=== PATIENT | female | born 1995 ===

== ENCOUNTER 2020-10-29 10:54 | Inpatient (IN) | payer MEDICAID ==
[2020-10-29] MEDS ORDERED: LACTATED RINGERS 1,000 ML ONE (11:18)
[2020-10-29] MEDS ORDERED: ONDANSETRON 4 MG/2 ML INJ IV PRN ×2 (11:59→20:06)
[2020-10-29] MEDS ORDERED: TERBUTALINE 1 MG/1 ML INJ SUB-Q PRN (11:59)
[2020-10-29] MEDS ORDERED: MINERAL OIL 30 ML ORAL LIQD PO PRN (11:59)
[2020-10-29] MEDS ORDERED: ePHEDrine SULFATE 50 MG/1 ML INJ IV PRN (11:59)
[2020-10-29] MEDS ORDERED: LIDOCAINE (2%) 20 MG/1 ML VIAL 20 ML MDV INFILTRATI ONE ×2 (11:59→19:19)
[2020-10-29] MEDS ORDERED: LACTATED RINGERS 1,000 ML IV SCH (12:00)
[2020-10-29] MEDS ORDERED: OXYTOCIN DRIP 30 UNITS/500 ML BAG IV SCH ×2 (12:00)
--- NOTE | 2020-10-29 12:13 | History and Physical Report ---
History of Present Illness Date of examination: 10/29/20 Date of admission: 10/29/2020 Chief complaint: leakage of fluid History of present illness: 24y/o @ 37+4 weeks presents with the complaint of leakage of fluid. She initiated care at 13 weeks ega. course has been uncomplicated. Patient is GBS negative. Past History Past Medical History: no pertinent history Past Surgical History: no surgical history Social history: single - Obstetrical History Expected Date of Delivery: 11/15/20 Actual Gestation: 37 Week(s) 4 Day(s) : 4 Para: 2 Hx # Term Pregnancies: 2 Number of Pregnancies: 0 Spontaneous Abortions: 1 Induced : 0 Number of Living Children: 2 Medications and Allergies Allergies Allergy/AdvReac Type Severity Reaction Status Date / Time No Known Allergies Allergy Unverified 10/29/20 11:56 Home Medications Medication Instructions Recorded Confirmed Last Taken Type One Daily Tablet 325 mg PO DAILY 10/29/20 10/29/20 10/29/20 History Active Meds: Active Medications Butorphanol Tartrate (Butorphanol 2 Mg/1 Ml Inj) 2 mg IV Q2H PRN PRN Reason: Pain , Severe (7-10) Ephedrine Sulfate (Ephedrine Sulfate 50 Mg/1 Ml Inj) 10 mg IV Q2M PRN PRN Reason: Hypotension Fentanyl (Fentanyl 100 Mcg/2 Ml Inj) 100 mcg IV Q2H PRN PRN Reason: Pain,Severe (7-10) LABOR PAIN Oxytocin/Sodium Chloride (Pitocin/Ns 30 Unit/500ml) 30 units in 500 mls @ 2 mls/hr IV TITR MAURILIO; Protocol Lactated Ringer's (Lactated Ringers) 1,000 mls @ 125 mls/hr IV DIRECT MAURILIO Oxytocin/Sodium Chloride (Pitocin/Ns 30 Unit/500ml) 30 units in 500 mls @ 40 mls/hr IV TITR MAURILIO; Protocol Ampicillin Sodium (Ampicillin/Ns 2 Gm/100 Ml) 2 gm in 100 mls @ 100 mls/hr IV ONCE ONE; Protocol Stop: 10/29/20 13:59 Ampicillin Sodium (Ampicillin/Ns 1 Gm/50 Ml) 1 gm in 50 mls @ 100 mls/hr IV Q4H MAURILIO; Protocol Lidocaine (Lidocaine (2%) 20 Mg/1 Ml Vial 20 Ml Mdv) 20 ml INFILTRATI ONCE ONE Stop: 10/29/20 12:00 Mineral Oil (Mineral Oil 30 Ml Oral Liqd) 30 ml PO QHS PRN PRN Reason: Constipation Ondansetron HCl (Ondansetron 4 Mg/2 Ml Inj) 4 mg IV Q8H PRN PRN Reason: Nausea And Vomiting Terbutaline Sulfate (Terbutaline 1 Mg/1 Ml Inj) 0.25 mg SUB-Q ONCE PRN PRN Reason: Hyperstimulation/Hypertonicity Review of Systems All systems: negative Genitourinary: leakage of fluid - Vital Signs Vital signs: Vital Signs Temp Pulse Resp BP Pulse Ox 98.0 F 104 H 16 112/76 84 10/29/20 11:23 10/29/20 11:23 10/29/20 11:23 10/29/20 11:23 10/29/20 11:23 Temp Pulse Resp BP Pulse Ox 98.0 F 106 H 16 112/76 100 10/29/20 11:23 10/29/20 12:06 10/29/20 11:23 10/29/20 11:23 10/29/20 12:06 - Physical Exam Breasts: Positive: deferred Cardiovascular: Regular rate Lungs: Positive: Clear to auscultation - Obstetrical Cervical Dilatation: 1 Results All other labs normal. Assessment and Plan - Patient Problems (1) Spontaneous rupture of amniotic membranes Current Visit: Yes Status: Acute Plan to address problem: admit and initiate pitocin augmentation
[2020-10-29 12:14] LABS: Hematocrit 36.4 % (30.3-42.9); Hemoglobin 12.2 gm/dl (10.1-14.3); Mean Corpuscular HGB Conc 33 % (30-34); Mean Corpuscular Volume 82 fl (79-97); Platelet Count 182 K/mm3 (140-440); Red Blood Count 4.43 M/mm3 (3.65-5.03); Red Cell Distribution Width 15.3 % (13.2-15.2)
[2020-10-29] MEDS ORDERED: BUTORPHANOL 2 MG/1 ML INJ IV PRN (12:30)
[2020-10-29] MEDS ORDERED: fentaNYL 100 MCG/2 ML INJ IV PRN (12:30)
[2020-10-29] MEDS ORDERED: AMPICILLIN/NS 2 GM/100 ML 2 GM/100 ML BAG IV ONE (13:00)
[2020-10-29] MEDS ORDERED: AMPICILLIN/NS 1 GM/50 ML 1 GM/50 ML BAG IV SCH (16:01)
--- NOTE | 2020-10-29 20:05 | Procedure Note ---
OB Delivery Note - Delivery Date of Delivery: 10/29/20 Surgeon: JOSE GOMEZ Estimated blood loss: other (75ml) - Vaginal Delivery presentation: vertex Delivery position: OA Delivery augmentation: pitocin Delivery monitor: external FHT, external uterine Route of delivery: Delivery placenta: spontaneous Delivery cord: nuchal cord (x2), 3 umbilical vessels Episiotomy: none Delivery laceration: none Anesthesia: none - Infant A at 1 minute: 6 at 5 minutes: 8 Infant Gender: Female (weight 6lbs 12oz)
[2020-10-29] MEDS ORDERED: PROMETHAZINE 25 MG TAB PO PRN (20:06)
[2020-10-29] MEDS ORDERED: ACETAMINOPHEN 325 MG TAB PO PRN (20:06)
[2020-10-29] MEDS ORDERED: LANOLIN/ZINC/DIMETHICONE (LANSINOH) 7 GM TP PRN (20:06)
[2020-10-29] MEDS ORDERED: WITCH HAZEL/ GLYCERIN PAD TP PRN (20:06)
[2020-10-29] MEDS ORDERED: PROMETHAZINE 25 MG RECT SUPP PR PRN (20:06)
[2020-10-29] MEDS ORDERED: diphenhydrAMINE 25 MG CAP PO PRN (20:06)
[2020-10-29] MEDS ORDERED: HYDROcodone/ACETAMINOPHEN 5-325 MG TAB PO PRN (20:06)
[2020-10-29] MEDS ORDERED: MAGNESIUM HYDROXIDE (MOM) ORAL LIQD UDC PO PRN (21:06)
[2020-10-29] MEDS: IBUPROFEN 600 MG TAB PO SCH (23:35)
[2020-10-30] MEDS: IBUPROFEN 600 MG TAB PO SCH ×5 (05:03→23:30)
--- NOTE | 2020-10-30 07:44 | Progress Note ---
Assessment and Plan A: PPD#1 s/p at term P: Routine care Anticipate discharge tomorrow Subjective - Subjective Date of service: 10/30/20 Principal diagnosis: s/p at term Interval history: No overnight events. Feeling well this morning. Patient reports: appetite normal, voiding normally, pain well controlled, ambulating normally : doing well Objective - Vital Signs Latest vital signs: Vital Signs Temp Pulse Resp BP BP Pulse Ox 10/30/20 04:40 98.1 F 61 20 95/55 96 10/30/20 00:44 97.8 F 67 20 95/62 98 10/29/20 21:20 99.2 F 68 18 89/52 97 10/29/20 21:01 69 99 10/29/20 20:56 67 99 10/29/20 20:51 71 99 10/29/20 20:46 74 99 10/29/20 20:41 69 99 10/29/20 20:39 70 101/58 10/29/20 20:36 69 99 10/29/20 20:31 69 99 10/29/20 20:26 70 99 10/29/20 20:21 74 99 10/29/20 20:16 77 99 10/29/20 20:11 74 99 10/29/20 20:08 98.5 F 10/29/20 20:06 71 99 10/29/20 20:01 75 98 10/29/20 19:56 71 99 10/29/20 19:51 71 100 10/29/20 19:46 69 100 10/29/20 19:41 69 97 10/29/20 19:36 71 100 10/29/20 19:31 74 85 10/29/20 19:26 84 100 10/29/20 19:21 67 100 10/29/20 19:16 83 100 10/29/20 19:11 73 100 10/29/20 19:10 85 103/60 10/29/20 19:08 98.8 F 10/29/20 19:06 80 100 10/29/20 19:01 82 100 10/29/20 18:56 72 100 10/29/20 18:51 74 100 10/29/20 18:46 72 100 10/29/20 18:44 73 108/64 10/29/20 18:43 97.9 F 80 18 108/64 100 03/07/21 18:41 77 100 10/29/20 18:36 85 100 10/29/20 18:31 76 99 10/29/20 18:26 79 100 10/29/20 18:21 73 100 10/29/20 18:16 75 100 10/29/20 18:11 78 100 10/29/20 18:06 67 99 10/29/20 18:01 72 99 10/29/20 17:56 77 99 10/29/20 17:51 78 100 10/29/20 17:46 68 100 10/29/20 17:41 73 99 10/29/20 17:36 76 98 10/29/20 17:31 68 98 10/29/20 17:26 69 99 10/29/20 17:21 71 100 10/29/20 17:20 18 10/29/20 17:16 78 100 10/29/20 17:11 74 99 10/29/20 17:06 73 99 10/29/20 17:01 76 99 10/29/20 16:56 67 99 10/29/20 16:51 71 99 10/29/20 16:46 81 99 10/29/20 16:41 77 99 10/29/20 16:36 69 98 10/29/20 16:31 79 99 10/29/20 16:26 70 98 10/29/20 16:21 85 99 10/29/20 16:16 65 98 10/29/20 16:11 68 97 10/29/20 16:06 66 98 10/29/20 16:01 70 98 10/29/20 15:56 68 98 10/29/20 15:51 70 97 10/29/20 15:46 72 97 10/29/20 15:41 69 97 10/29/20 15:36 72 18 100 10/29/20 15:31 92 H 99 10/29/20 15:26 79 99 10/29/20 15:21 79 100 10/29/20 15:16 97 H 99 10/29/20 15:11 91 H 100 10/29/20 15:07 98.0 F 83 18 105/70 105/70 100 10/29/20 15:06 90 100 10/29/20 15:01 82 99 10/29/20 14:56 82 100 10/29/20 14:51 87 100 10/29/20 14:46 103 H 100 10/29/20 14:41 87 100 10/29/20 14:36 93 H 99 10/29/20 14:31 91 H 100 10/29/20 14:26 87 100 10/29/20 14:21 95 H 99 10/29/20 14:16 92 H 99 10/29/20 14:11 89 99 10/29/20 14:06 91 H 99 10/29/20 14:01 95 H 99 10/29/20 13:56 92 H 98 10/29/20 13:51 95 H 100 10/29/20 13:46 85 99 10/29/20 13:41 98 H 99 10/29/20 13:36 92 H 100 10/29/20 13:31 97 H 98 10/29/20 13:26 94 H 99 10/29/20 13:21 95 H 99 10/29/20 13:16 102 H 99 10/29/20 13:11 96 H 99 10/29/20 13:06 96 H 99 10/29/20 13:01 96 H 99 10/29/20 13:00 97.9 F 10/29/20 12:56 99 H 99 10/29/20 12:51 93 H 98 10/29/20 12:46 96 H 100 10/29/20 12:41 97 H 100 10/29/20 12:36 99 H 100 10/29/20 12:31 106 H 100 10/29/20 12:26 92 H 99 10/29/20 12:21 105 H 99 10/29/20 12:16 103 H 100 10/29/20 12:11 101 H 100 10/29/20 12:06 106 H 100 10/29/20 12:01 100 H 100 10/29/20 11:53 105 H 99 10/29/20 11:48 97 H 100 10/29/20 11:43 99 H 100 10/29/20 11:38 100 H 100 10/29/20 11:33 92 H 100 10/29/20 11:28 119 H 100 10/29/20 11:23 98.0 F 116 H 16 112/76 112/76 100 Intake and Output 03/07/21 03/08/21 03/08/21 22:59 06:59 14:59 Intake Total 13.5 600 Output Total 600 600 Balance -586.5 0 Intake: IV 13.5 PITOCin/NS 30 UNIT/500ML 13.5 30 units In 500 ml @ 2 mls/hr IV TITR MAURILIO Rx#: [id number] Oral 600 Output: Urine 600 600 Void 600 600 Other: Total, Intake Amount 200 Total, Output Amount 600 300 # Voids Void 1 Estimated Blood Loss 75 - Exam Breasts: Present: deferred Abdomen: Present: soft Uterus: Present: fundal height at umbilicus Extremities: Present: normal - Labs Labs: Abnormal lab results 10/29/20 Range/Units 11:30 RDW 15.3 H (13.2-15.2) %
--- NOTE | 2020-10-30 07:47 | Discharge Summary ---
Providers - Providers Date of Admission: 10/29/20 10:55 Date of discharge: 10/31/20 Attending physician: JOSE GOMEZ Primary care physician: JOSE GOMEZ Hospitalization Reason for admission: rupture of membranes Delivery: Procedure details: Please see delivery note. Episiotomy: none Laceration: none Other procedures: none complications: none Discharge diagnosis: IUP at term delivered [place] baby: female Hospital course: Pt was admitted with rupture of membranes at term and went on to have a spontaneous vaginal delivery which she tolerated well. She was observed until she met discharge criteria on PPD#2. She will follow up in the office in 4 wks for a exam. Condition at discharge: Stable Disposition: DC-01 TO HOME OR SELFCARE - Discharge Diagnoses (1) Term of female Status: Acute Plan - Discharge Medications Prescriptions: Ferrous Sulfate [Feosol 325 MG tab] 325 mg PO QDAY #30 tablet Ibuprofen [Motrin] 800 mg PO Q8HR PRN #30 tablet PRN Reason: Pain, Moderate (4-6) - Provider Discharge Summary Activity: routine, no sex for 6 weeks, no heavy lifting 4 weeks, no strenuous exercise Diet: routine Instructions: routine Additional instructions: [] Smoking cessation referral if applicable(refer to patient education folder for contact #) [] Refer to [facility]'s [facility] Booklet Call your doctor immediately for: * Fever > 100.5 * Heavy vaginal bleeding ( >1 pad per hour) * Severe persistent headache * Shortness of breath * Reddened, hot, painful area to leg or breast * Drainage or odor from incision. * Keep incision clean and dry at all times and follow doctor's instructions regarding bathing/showering - Follow up plan Follow up: JULIAN MARR FLOORWORKER [Advanced Practice Nurse] - 11/27/20 (Please call to schedule appt )
[2020-10-30 10:59] LABS: Hematocrit 29.5 % (30.3-42.9); Hemoglobin 9.9 gm/dl (10.1-14.3)
[2020-10-31] MEDS: IBUPROFEN 600 MG TAB PO SCH ×3 (05:28→17:46)
[2020-10-31 16:35] VITALS: BP 94/56
== END 2020-10-31 20:55 | disposition home or self-care (01) | DRG 775 ==
LOC: TRG 10:54 → LD 10:55 → TRG 11:59 → OB 21:14
PROVIDERS: ADMIT Obstetrics & Gynecology; ATTEND Obstetrics & Gynecology
PROC: 10E0XZZ Delivery of Products of Conception, External Approach (ICD-10-PCS; principal; 2020-10-29)
DX: O80 Encounter for full-term uncomplicated delivery (principal); Z3A.37 37 weeks gestation of pregnancy; Z37.0 Single live birth; Z20.822 Contact with and (suspected) exposure to COVID-19
CPT/HCPCS: 36415; 85014; 85018; 85027; 86850; 86870; 86880; 86900; 86901; G0378; J0290; J0595; J2590; J3010; J7120; U0003